=== PATIENT | male | born 1940 | race Caucasian/White ===

== ENCOUNTER 2024-05-28 06:06 | Emergency (ER) | payer MEDICARE ==
[~2024-05-28] VITALS: Ht 195.6 cm; Wt 80.0 kg
[2024-05-28 06:24] LABS: BASOPHILS 0.6 % (0-2); EOSINOPHILS 1.4 % (0-6); HEMATOCRIT 36.7 % (35.0-50.0); HEMOGLOBIN 12.4 g/dL (12.0-18.0); LYMPHOCYTES 7.5 % (24-44); MCH 28.2 (27-36); MCHC 33.7 g/dl (30-36); MCV 83.9 fl (81-99); NEUTROPHILS 84.5 % (39-80); PLATELET COUNT 281 K/uL (140-440); RBC 4.37 M/ul (4.3-5.7); RDW 14.7 (10.5-15.0)
[2024-05-28] MEDS ORDERED: KETOROLAC TROMETHAMINE 15 MG/ML VIAL IV ONE (06:45)
[2024-05-28 06:53] LABS: ALBUMIN 2.8 g/dL (3.4-5.0); ALBUMIN/GLOBULIN RATIO 0.82 (1.1-2.4); ANION GAP 10.7 (7-21); BUN/CREATININE RATIO 13.82 (6.0-28.6); CALCIUM 8.4 mg/dL (8.5-10.1); CREATININE, SERUM 0.94 mg/dL (0.70-1.30); POTASSIUM 4.7 mmol/L (3.5-5.1); PROTEIN, TOTAL 6.2 g/dL (6.4-8.2)
[2024-05-28] MEDS ORDERED: VITAMIN D350 MC4 PO (07:00)
[2024-05-28] MEDS ORDERED: FISH OIL 1,001000 MG PO (07:00)
[2024-05-28] MEDS ORDERED: FOLIC ACID0.8 M1 PO (07:01)
[2024-05-28] MEDS ORDERED: METAMUCIL0.4 GM PO (07:02)
[2024-05-28] MEDS ORDERED: SENNA8.6 MG PO (07:03)
[2024-05-28] MEDS ORDERED: TYLENOL325 MG PO (07:06)
[2024-05-28] MEDS ORDERED: FLEET ENEMA133 ML PR (07:07)
[2024-05-28] MEDS ORDERED: DULCOLAX10 MG PR (07:07)
[2024-05-28] MEDS ORDERED: MILK OF MA400 MG/5 M PO (07:08)
[2024-05-28] MEDS ORDERED: NARCAN4 MG NAS (07:10)
[2024-05-28] MEDS ORDERED: ONDANSETRON ODT8 MG PO (07:10)
[2024-05-28] MEDS ORDERED: CLEARLAX119 GM PO (07:12)
[2024-05-28] MEDS ORDERED: OXYCODONE HCL5 MG PO (07:12)
[2024-05-28] MEDS ORDERED: TIZANIDINE HCL2 MG PO (07:13)
[2024-05-28] MEDS ORDERED: TRAZODONE HCL50 MG (07:14)
[2024-05-28 07:32] LABS: BILIRUBIN, URINE POSITIVE (negative); BLOOD/HGB, URINE NEGATIVE (Negative); KETONE, URINE TRACE (Negative); LEUK ESTERASE, URINE LARGE (negative); NITRITE, URINE POSITIVE (negative); PH, URINE 6.5 (5-7)
[2024-05-28 07:43] LABS: BACTERIA, URINE 2+ /hpf (negative); CASTS, URINE NONE SEEN \\lpf; COLLECTION TYPE, URINE CLEAN CATCH; CRYSTALS, URINE NONE SEEN (0-1+); EPITHELIAL CELLS, URINE 0 /lpf (0-1+); RED BLOOD CELLS, URINE 0-1 /hpf (0-5); REFLEX CULTURE, URINE Yes (No); WHITE BLOOD CELLS, URINE 21-40 /HPF (0-5)
[2024-05-28] MEDS ORDERED: SODIUM CHLORIDE 0.9% 1,000 ML IV PRN (08:00)
[2024-05-28] MEDS ORDERED: CEFTRIAXONE/SODIUM CHLORIDE 1 GM/100 ML PIGGYBACK IV ONE (08:00)
[2024-05-28] MEDS ORDERED: BACTRIM DS TAB1 EACH PO (08:48)
[2024-05-28 09:55] VITALS: BP 104/69
== END 2024-05-28 09:55 ==
LOC: ED 06:06
PROVIDERS: Internal Medicine
DX: M17.12 Unilateral primary osteoarthritis, left knee (principal); F03.90 Unspecified dementia, unspecified severity, without behavioral disturbance, psychotic disturbance, mood disturbance, and anxiety; Z79.899 Other long term (current) drug therapy
CPT/HCPCS: 36415; 72170; 73560; 80053; 81001; 84550; 85025; J0696; J1885; J7030